=== PATIENT | female | born 1995 | race Caucasian/White ===

== ENCOUNTER 2017-06-26 02:15 | Emergency (ER) | payer OTHER ==
[~2017-06-26] VITALS: Ht 170.2 cm; Wt 72.2 kg
[2017-06-26 02:23] VITALS: BP 117/76
--- NOTE | 2017-06-26 02:27 | NUR ---
PT AMBULATED TO BED 2
--- NOTE | 2017-06-26 02:30 | NUR ---
PATIENT PRESENTS TO ED WITH SOB AND DYSPNEA SINCE 2300 AFTER TAKING X2 50MG TRAMADOL FOR PAIN. PT STATES SHE WAS SEEN ON 06/25/17 FOR KIDNEY STONES AND PERSCRIBED TRAMADOL 50MG PO. SHE STATES SHE TOOK TWO TABLETS AND STARTED FEELING SOB AFTEWARDS. DENIES N/V/D; SKIN IS PINK/WARM/DRY; AAOX4 WITH EVEN AND STEADY GAIT; LUNGS CLEAR BL; HR EVEN AND REGULAR; PT DENIES ANY FEVER, CP, OR COUGH AT THIS TIME; PATIENT STATES PAIN OF 0/10 AT THIS TIME; VSS; PATIENT POSITIONED FOR COMFORT; HOB ELEVATED; BEDRAILS UP X2; BED DOWN. ER MD MADE AWARE OF PT STATUS. CONTINUE TO MONITOR.
[2017-06-26] MEDS ORDERED: predniSONE 20 MG TAB PO ONE (02:40)
[2017-06-26] MEDS ORDERED: NACL 0.9% 1,000 ML IV ONE (02:40)
[2017-06-26 03:48] VITALS: BP 117/76
--- NOTE | 2017-06-26 03:48 | NUR ---
Patient discharged with v/s stable without sob or dyspnea. Written and verbal after care instructions given and explained. Patient alert, oriented and verbalized understanding of instructions. Ambulatory with steady gait. All questions addressed prior to discharge. ID band removed. Patient advised to follow up with PMD. Rx of given. Patient educated on indication of medication including possible reaction and side effects. Opportunity to ask questions provided and answered.
== END 2017-06-26 03:48 | disposition home or self-care (01) ==
LOC: MED 02:15
DX: T40.4X1A Poisoning by other synthetic narcotics, accidental (unintentional), initial encounter (principal); R06.02 Shortness of breath; Y92.89 Other specified places as the place of occurrence of the external cause
CPT/HCPCS: 96360; 99284; J7030; J7512

== ENCOUNTER 2017-06-26 12:09 | Emergency (ER) | payer OTHER ==
[~2017-06-26] VITALS: Ht 170.2 cm; Wt 72.1 kg
[2017-06-26 12:18] VITALS: BP 109/86
--- NOTE | 2017-06-26 14:40 | NUR ---
PT. CAME INTO THE ED WITH C/O CHST PAIN IN MID STERNAL AREA THAT IS NON RADIATING. PT. STATES " I AM SHORT OF BREATHE, AND I HAVE SOME CHEST PAIN ". 7/10 PAIN THAT IS NON RADIATING IN MID CHEST AREA. DENIES N/V/D. RR EVEN AND UNLABORED. LS; CLEAR, BED IN LOWEST POSITION, SIDE RAILS UP X 2. ER MD NOTIFIED. WILL CONTINUE TO MONITOR.
[2017-06-26 15:57] VITALS: BP 110/63
--- NOTE | 2017-06-26 15:57 | NUR ---
Patient discharged with v/s stable. Written and verbal after care instructions given and explained. Patient verbalized understanding. Ambulatory with steady gait. All questions addressed prior to discharge. Advised to follow up with PMD.
== END 2017-06-26 15:57 | disposition home or self-care (01) ==
LOC: MED 12:09
DX: R42 Dizziness and giddiness (principal); R06.00 Dyspnea, unspecified
CPT/HCPCS: 93005; 99283

== ENCOUNTER 2017-08-18 21:07 | Emergency (ER) | payer OTHER ==
[~2017-08-18] VITALS: Ht 167.6 cm; Wt 72.6 kg
[2017-08-18 21:16] VITALS: BP 154/76
--- NOTE | 2017-08-18 21:20 | NUR ---
PATIENT PRESENTS TO ED WITH LLQ ABD PAIN RADIATING TO RLQ ABD X2 WEEKS. PT STATES SHE WAS RECENTLY DIAGNOSED WITH OVARIAN CYST ON RIGHT OVARY, CONTINUES TO HAVE PAIN, AND IS NOW 20 DAYS LATE WITH HER PERIOD. DENIES N/V/D; SKIN IS PINK/WARM/DRY; AAOX4 WITH EVEN AND STEADY GAIT; LUNGS CLEAR BL; HR EVEN AND REGULAR; PT DENIES ANY FEVER, CP, SOB, OR COUGH AT THIS TIME; PATIENT STATES PAIN OF 6/10 AT THIS TIME; VSS; PATIENT POSITIONED FOR COMFORT; HOB ELEVATED; BEDRAILS UP X2; BED DOWN. ER MD MADE AWARE OF PT STATUS. CONTINE TO MONITOR.
--- NOTE | 2017-08-18 21:20 | NUR ---
TO BED 2
[2017-08-18] MEDS ORDERED: KETOROLAC 60 MG/2 ML VIAL IM ONE (21:45)
[2017-08-18 22:06] LABS: BASOPHILS % (AUTO) 0.2 % (0.0-2.0); EOSINOPHILS # (AUTO) 0.1 K/uL (0-0.4); HEMATOCRIT 36.8 % (36-48); HEMOGLOBIN 12.3 g/dL (12.0-16.0); LYMPHOCYTES # (AUTO) 2.6 K/uL (2.5-16.5); LYMPHOCYTES % (AUTO) 39.1 % (20.5-51.1); MEAN CORPUSCULAR HEMOGLOBIN 32 pg (27-31); MEAN CORPUSCULAR HGB CONC 33 g/dL (33-37); MEAN CORPUSCULAR VOLUME 94.3 fL (80-94); MONOCYTES # (AUTO) 0.7 K/uL (0.8-1.0); MONOCYTES % (AUTO) 11.1 % (1.7-9.3); NEUTROPHILS # (AUTO) 3.2 K/uL (1.8-7.7); NEUTROPHILS % (AUTO) 47.6 % (42.2-75.2); PLATELET COUNT (AUTO) 220 K/uL (140-450); RED CELL DISTRIBUTION WIDTH 12.6 % (11.6-13.7); WHITE BLOOD COUNT (AUTO) 6.7 K/uL (4.8-10.8)
[2017-08-18 22:18] LABS: ANION GAP 9.1 (8-16); CARBON DIOXIDE 27.9 mmol/L (21-32); CREATININE 0.7 mg/dL (0.6-1.3)
[2017-08-18 22:24] LABS: ALBUMIN 3.6 g/dL (3.4-5.0); TOTAL BILIRUBIN 0.2 mg/dL (0.0-1.0)
[2017-08-19 00:24] VITALS: BP 117/61
== END 2017-08-19 00:14 | disposition home or self-care (01) ==
LOC: MED 21:07
DX: R10.31 Right lower quadrant pain (principal); R11.0 Nausea; Z88.8 Allergy status to other drugs, medicaments and biological substances
CPT/HCPCS: 36415; 76856; 80053; 81002; 81025; 83690; 85025; 96372; 99285; J1885; Q0092

== ENCOUNTER 2017-12-11 10:55 | Emergency (ER) | payer BC, OTHER ==
[~2017-12-11] VITALS: Ht 170.2 cm; Wt 77.7 kg
[2017-12-11 11:04] VITALS: BP 113/58
--- NOTE | 2017-12-11 11:12 | NUR ---
BIB SELF. PATIENT PRESENTS TO ED WITH R FLANK PAIN AND RLQ PAIN. PT STATES SHE HAS HAD UTI'S IN THE PAST . DENIES N/V/D; SKIN IS PINK/WARM/DRY; AAOX4 WITH EVEN AND STEADY GAIT; LUNGS CLEAR BL; HR EVEN AND REGULAR; PT DENIES ANY FEVER, CP, SOB, OR COUGH AT THIS TIME; PATIENT STATES PAIN OF 6/10 AT THIS TIME; VSS; PATIENT POSITIONED FOR COMFORT; HOB ELEVATED; BEDRAILS UP X2; BED DOWN. ER MD MADE AWARE OF PT STATUS.
--- NOTE | 2017-12-11 12:00 | NUR ---
DR REECE AT BEDSIDE
--- NOTE | 2017-12-11 12:10 | NUR ---
PATIENT TAKEN TO CT
--- NOTE | 2017-12-11 12:32 | NUR ---
PATIENT RETURNED FROM CT
[2017-12-11] MEDS: KETOROLAC 30 MG/ML VIAL IVP ONE (12:44)
[2017-12-11] MEDS: ONDANSETRON 4 MG/2 ML VIAL IVP ONE ×2 (12:44→16:22)
[2017-12-11] MEDS: NACL 0.9% 1,000 ML IV SCH (12:45)
[2017-12-11] MEDS: NACL 0.9% 1,000 ML IV ONE (12:45)
[2017-12-11 13:15] LABS: BASOPHILS % (AUTO) 0.1 % (0.0-2.0); EOSINOPHILS # (AUTO) 0.1 K/uL (0-0.4); HEMATOCRIT 38.9 % (36-48); LYMPHOCYTES # (AUTO) 1.8 K/uL (2.5-16.5); LYMPHOCYTES % (AUTO) 33.9 % (20.5-51.1); MEAN CORPUSCULAR HEMOGLOBIN 31 pg (27-31); MEAN CORPUSCULAR HGB CONC 33 g/dL (33-37); MEAN CORPUSCULAR VOLUME 93.6 fL (80-94); MONOCYTES # (AUTO) 0.6 K/uL (0.8-1.0); MONOCYTES % (AUTO) 10.8 % (1.7-9.3); NEUTROPHILS # (AUTO) 2.8 K/uL (1.8-7.7); NEUTROPHILS % (AUTO) 53.2 % (42.2-75.2); PLATELET COUNT (AUTO) 233 K/uL (140-450); RED BLOOD CELL COUNT(AUTO) 4.15 MIL/uL (4.20-5.40); RED CELL DISTRIBUTION WIDTH 12.1 % (11.6-13.7); WHITE BLOOD COUNT (AUTO) 5.2 K/uL (4.8-10.8)
[2017-12-11 13:30] LABS: ANION GAP 5.1 (8-16); CARBON DIOXIDE 29.5 mmol/L (21-32); CREATININE 0.7 mg/dL (0.6-1.3); POTASSIUM 3.6 mmol/L (3.5-5.1)
[2017-12-11 13:45] LABS: ALBUMIN 4.3 g/dL (3.4-5.0); TOTAL BILIRUBIN 0.4 mg/dL (0.0-1.0)
[2017-12-11 13:45] LABS: APPEARANCE,URINE CLEAR (CLEAR); BILIRUBIN,URINE 2+ (NEGATIVE); BLOOD, URINE NEGATIVE (NEGATIVE); COLOR,URINE ORANGE (YELLOW); LEUKOCYTE ESTERASE ,URINE NEGATIVE (NEGATIVE); NITRITE, URINE POSITIVE (NEGATIVE); UGLUCOSE 1+ (NEGATIVE)
[2017-12-11 13:53] LABS: RBC,URINE NONE SEEN /HPF (0-5); WBC,URINE 0-5 (RARE) /HPF (0-5)
[2017-12-11] MEDS: AZITHROMYCIN 250 MG TAB PO ONE (16:07)
[2017-12-11] MEDS: metroNIDAZOLE 250 MG TAB PO ONE (16:18)
[2017-12-11] MEDS: cefTRIAXone 250 MG in LIDOCAINE MPF 1% - 5 mL VIAL 0.9 ML IM ONE (16:21)
[2017-12-11 16:28] VITALS: BP 115/60
== END 2017-12-11 16:29 | disposition home or self-care (01) ==
LOC: MED 10:55
DX: M54.5 Low back pain (principal); R10.2 Pelvic and perineal pain; R11.0 Nausea; R14.0 Abdominal distension (gaseous); R35.0 Frequency of micturition; N89.8 Other specified noninflammatory disorders of vagina; Z88.6 Allergy status to analgesic agent
CPT/HCPCS: 36415; 74176; 76830; 80053; 81001; 81025; 83690; 84703; 85025; 87086; 96374; 96375; 99285; J1885; J2405; J7030; Q0092